=== PATIENT | male | born 1980 | race Native Hawaiian/Other Pacific Islander ===

== ENCOUNTER 2021-10-28 10:56 | Outpatient (CLI) | payer OTHER | END 2021-10-28 19:12 | disposition home or self-care (01) | LOC: US 10:56 | PROVIDERS: ATTEND Nurse Practitioner | DX: M79.662 Pain in left lower leg (principal); R22.42 Localized swelling, mass and lump, left lower limb; Z86.718 Personal history of other venous thrombosis and embolism; Z09 Encounter for follow-up examination after completed treatment for conditions other than malignant neoplasm ==

== ENCOUNTER 2023-07-22 08:17 | Outpatient (CLI) | payer OTHER | END 2023-07-22 20:00 | disposition home or self-care (01) | LOC: US 08:17 | PROVIDERS: ATTEND Internal Medicine | DX: M79.605 Pain in left leg (principal); Z86.718 Personal history of other venous thrombosis and embolism; M79.89 Other specified soft tissue disorders ==